=== PATIENT | female | born 1985 | race Caucasian/White ===

== ENCOUNTER 2017-02-10 23:25 | Emergency (ER) | payer MEDICARE ==
[2017-02-11 01:02] LABS: BASOPHIL 0.1 % (0-2); EOSINOPHIL 2.2 % (0-5); HCT 34.8 % (37.0-47.0); LYMPHOCYTE 14.6 % (15-48); MCH 25.3 pg (25.0-31.0); MCHC 31.6 g/dL (32.0-36.0); MONOCYTE 8.1 % (0-12); PLT 357 K/uL (150-400); RBC 4.35 M/uL (4.20-5.40); RDW 16.7 % (11.5-14.0); WBC 10.1 K/uL (4.0-10.5)
[2017-02-11 01:11] LABS: INR 2.01 (0.9-1.2); PROTHROMBIN TIME 22.2 SECONDS (11.7-14.0)
[2017-02-11 01:12] LABS: PTT 51.8 SECONDS (23.2-31.4)
[2017-02-11 01:20] LABS: MYOGLOBIN 21 ng/mL (26-65); PRO-BNP 42 pg/mL (0-125); TROPONIN T < 0.010 ng/mL
[2017-02-11 01:24] LABS: ALBUMIN 3.6 g/dL (3.5-5.0); BILIRUBIN - TOTAL 0.2 mg/dL (0.1-1.0); GLOBULIN (CALCULATION) 2.6 g/dL (2.2-4.2); MAGNESIUM 2.17 mg/dL (1.40-2.10); POTASSIUM 4.1 mmol/L (3.5-5.1); TOTAL PROTEIN 6.2 g/dL (6.4-8.3)
== END 2017-02-11 04:35 | disposition home or self-care (01) ==
LOC: FER 23:25
PROVIDERS: Emergency Medicine
DX: R07.1 Chest pain on breathing (principal); R06.02 Shortness of breath; R21 Rash and other nonspecific skin eruption; N28.9 Disorder of kidney and ureter, unspecified; D68.61 Antiphospholipid syndrome; Z86.718 Personal history of other venous thrombosis and embolism; Z86.73 Personal history of transient ischemic attack (TIA), and cerebral infarction without residual deficits; Z85.41 Personal history of malignant neoplasm of cervix uteri; Z88.8 Allergy status to other drugs, medicaments and biological substances; Z79.01 Long term (current) use of anticoagulants; Z79.899 Other long term (current) drug therapy; Z98.61 Coronary angioplasty status
CPT/HCPCS: 36415; 71010; 80053; 82550; 82553; 83735; 83874; 83880; 84484; 85025; 85379; 85610; 85730; 93005; J1885; J2930